=== PATIENT | male | born 1955 | race African-American/Black ===

== ENCOUNTER 2022-10-05 09:49 | Inpatient (IN) | payer OTHER ==
[2022-10-05 10:27] VITALS: BMI 23.0
[2022-10-05] MEDS ORDERED: NICOTINE POLACRILEX 2 MG GUM BUC PRN (11:12)
[2022-10-05] MEDS ORDERED: NICOTINE 10 MG CARTRIDGE (INHALER) IH PRN (11:12)
[2022-10-05] MEDS ORDERED: MAGNESIUM HYDROX 2400MG/30ML ORAL SUSPENSION 30 ML CUP PO PRN (11:12)
[2022-10-05] MEDS ORDERED: ONDANSETRON *ODT* 4 MG TABLET SL PRN (11:12)
[2022-10-05] MEDS ORDERED: ACETAMINOPHEN 325 MG TABLET (FP) PO PRN ×2 (11:12)
[2022-10-05] MEDS ORDERED: BISMUTH SUBSALICYLATE 524 MG/30 ML PO PRN (11:12)
[2022-10-05] MEDS ORDERED: POLYETHYLENE GLYCOL (HEALTHYLAX) 3350 17 GM PACKET PO PRN (11:12)
[2022-10-05] MEDS ORDERED: LOPERAMIDE HCL 2 MG CAPSULE PO PRN (11:12)
[2022-10-05] MEDS ORDERED: BENZOCAINE/MENTHOL (CHLORASEPTIC ) LOZENGE MM PRN (11:12)
[2022-10-05] MEDS ORDERED: DICYCLOMINE HCL 10 MG CAPSULE PO PRN (11:12)
[2022-10-05] MEDS ORDERED: NALOXONE HCL (KLOXXADO) 8 MG SPRAY NS PRN (11:12)
[2022-10-05] MEDS ORDERED: NALOXONE HCL 0.4 MG/ML VIAL IM PRN (11:12)
[2022-10-05] MEDS ORDERED: MAG HYDROX/AL HYDROX/SIMETH 30 ML UNIT-DOSE CUP PO PRN (11:12)
[2022-10-05] MEDS ORDERED: methaDONE HCL 10 MG TABLET (FOR DETOX USE ONLY) ONE (12:09)
[2022-10-05] MEDS ORDERED: methaDONE HCL 10 MG TABLET (FOR DETOX USE ONLY) PO ONE (12:15)
[2022-10-05] MEDS: cloNIDine HCL 0.1 MG TABLET PO PRN (13:48)
[2022-10-05 15:04] LABS: HEMATOCRIT 34.2 % (35.4-49); MCH 29.2 pg (25.7-33.7); MCHC 32.2 g/dl (32.0-35.9); MEAN CELL VOLUME 90.6 fl (80-96); PLATELET COUNT 211 10^3/uL (134-434); RBC 3.78 M/mm3 (4.00-5.60); RDW 14.5 % (11.9-15.9); WHITE BLOOD COUNT 4.1 K/mm3 (4.0-10.0)
[2022-10-05 15:16] LABS: CALCIUM 9.2 mg/dL (8.5-10.1)
[2022-10-05 15:17] LABS: ALBUMIN 3.5 g/dl (3.4-5.0); BLOOD UREA NITROGEN 16.6 mg/dL (7-18)
[2022-10-05 15:20] LABS: CREATININE 1.3 mg/dL (0.55-1.3)
[2022-10-05 15:21] LABS: TOT PROT 7.7 g/dl (6.4-8.2)
[2022-10-05 15:22] LABS: BILIRUBIN,TOTAL 0.6 mg/dL (0.2-1)
[2022-10-05] MEDS: TAMSULOSIN HCL 0.4 MG CAP PO SCH (22:36)
[2022-10-05] MEDS: MELATONIN 5 MG TABLETS PO SCH (22:36)
[2022-10-05] MEDS: APIXABAN 5 MG TABLET PO SCH (22:36)
[2022-10-05] MEDS: THIAMINE HCL 100 MG TABLET (FP) PO SCH (22:37)
[2022-10-06 09:22] LABS: EPI CELLS 4 /uL (0-25.1); HYALINE CASTS 0 /uL (0-3.1); URINE APPEARANCE CLEAR; URINE BACTERIA 1364 /uL (0-1359); URINE BILIRUBIN NEGATIVE (NEGATIVE); URINE COLOR YELLOW; URINE GLUCOSE (UA) NEGATIVE (NEGATIVE); URINE KETONE NEGATIVE (NEGATIVE); URINE LEUK ESTERASE NEGATIVE (NEGATIVE); URINE NITRITE POSITIVE (NEGATIVE); URINE PROTEIN TRACE (NEGATIVE); URINE RBC 51 /uL (0-23.9); URINE WBC 26 /uL (0-25.8)
[2022-10-06] MEDS: APIXABAN 5 MG TABLET PO SCH ×2 (10:24→22:27)
[2022-10-06] MEDS: PRENATAL VITAMINS W/ FOLIC ACID TABLET (FP) PO SCH (10:24)
[2022-10-06] MEDS: TAMSULOSIN HCL 0.4 MG CAP PO SCH ×2 (10:24→22:27)
[2022-10-06] MEDS: THIAMINE HCL 100 MG TABLET (FP) PO SCH (22:27)
[2022-10-06] MEDS: MELATONIN 5 MG TABLETS PO SCH (22:27)
[2022-10-07] MEDS ORDERED: methaDONE HCL 10 MG TABLET (FOR DETOX USE ONLY) PO ONE (10:00)
[2022-10-07] MEDS: PRENATAL VITAMINS W/ FOLIC ACID TABLET (FP) PO SCH (10:18)
[2022-10-07] MEDS: APIXABAN 5 MG TABLET PO SCH ×2 (10:18→21:47)
[2022-10-07] MEDS: TAMSULOSIN HCL 0.4 MG CAP PO SCH ×2 (10:56→21:48)
[2022-10-07] MEDS: MELATONIN 5 MG TABLETS PO SCH (21:47)
[2022-10-07] MEDS: cloNIDine HCL 0.1 MG TABLET PO PRN (21:47)
[2022-10-07] MEDS: THIAMINE HCL 100 MG TABLET (FP) PO SCH (21:48)
[2022-10-08] MEDS: PRENATAL VITAMINS W/ FOLIC ACID TABLET (FP) PO SCH (10:13)
[2022-10-08] MEDS: TAMSULOSIN HCL 0.4 MG CAP PO SCH ×2 (10:14→21:42)
[2022-10-08] MEDS: APIXABAN 5 MG TABLET PO SCH ×2 (10:14→21:43)
[2022-10-08] MEDS ORDERED: cloNIDine HCL 0.1 MG TABLET PO ONE (21:15)
[2022-10-08] MEDS: THIAMINE HCL 100 MG TABLET (FP) PO SCH (21:43)
[2022-10-08] MEDS: MELATONIN 5 MG TABLETS PO SCH (21:44)
[2022-10-09 06:13] VITALS: RESP 17
[2022-10-09 09:20] VITALS: BP 138/77; PULSE 61; TEMP 97.8
[2022-10-09] MEDS: TAMSULOSIN HCL 0.4 MG CAP PO SCH (10:10)
[2022-10-09] MEDS: PRENATAL VITAMINS W/ FOLIC ACID TABLET (FP) PO SCH (10:10)
[2022-10-09] MEDS: APIXABAN 5 MG TABLET PO SCH (10:10)
== END 2022-10-09 12:27 | disposition other institution (70) | DRG 897 ==
LOC: YASAS 09:49 → Y3N 12:57
PROVIDERS: ADMIT Allergy & Immunology; ATTEND Surgery
PROC: HZ2ZZZZ Detoxification Services for Substance Abuse Treatment (ICD-10-PCS; principal; 2022-10-05)
DX: F11.23 Opioid dependence with withdrawal (principal); F14.20 Cocaine dependence, uncomplicated; F17.210 Nicotine dependence, cigarettes, uncomplicated; D64.9 Anemia, unspecified; I48.91 Unspecified atrial fibrillation; K40.90 Unilateral inguinal hernia, without obstruction or gangrene, not specified as recurrent; N40.0 Benign prostatic hyperplasia without lower urinary tract symptoms; R82.998 Other abnormal findings in urine; Z96.0 Presence of urogenital implants; Z79.01 Long term (current) use of anticoagulants; Z86.73 Personal history of transient ischemic attack (TIA), and cerebral infarction without residual deficits; Z88.8 Allergy status to other drugs, medicaments and biological substances
CPT/HCPCS: 36415; 71046-TC-FY; 80053; 81003; 85027; 86780; 87811; 93005; 93010; C9803-CS; U0003; U0005

== ENCOUNTER 2022-10-09 12:47 | Inpatient (IN) | payer OTHER ==
[2022-10-09] MEDS ORDERED: MAG HYDROX/AL HYDROX/SIMETH 30 ML UNIT-DOSE CUP PO PRN (14:10)
[2022-10-09] MEDS ORDERED: IBUPROFEN 600 MG TABLET (FP) PO PRN (14:10)
[2022-10-09] MEDS ORDERED: BENZOCAINE/MENTHOL (CHLORASEPTIC ) LOZENGE MM PRN (14:10)
[2022-10-09] MEDS ORDERED: BENZONATATE 200 MG CAPSULE PO PRN (14:10)
[2022-10-09] MEDS ORDERED: NALOXONE HCL (KLOXXADO) 8 MG SPRAY NS PRN (14:10)
[2022-10-09] MEDS ORDERED: POLYETHYLENE GLYCOL (HEALTHYLAX) 3350 17 GM PACKET PO PRN (14:10)
[2022-10-09] MEDS ORDERED: guaiFENesin 600 MG TABLET.ER (FP) PO PRN (14:10)
[2022-10-09] MEDS ORDERED: LOPERAMIDE HCL 2 MG CAPSULE PO PRN (14:10)
[2022-10-09] MEDS ORDERED: NALOXONE HCL 0.4 MG/ML VIAL IVPUSH PRN (14:10)
[2022-10-09] MEDS ORDERED: MAGNESIUM HYDROX 2400MG/30ML ORAL SUSPENSION 30 ML CUP PO PRN (14:10)
[2022-10-09] MEDS ORDERED: NICOTINE 10 MG CARTRIDGE (INHALER) IH PRN (14:10)
[2022-10-09] MEDS ORDERED: IBUPROFEN 400 MG TABLET (FP) PO PRN (14:10)
[2022-10-09] MEDS ORDERED: ACETAMINOPHEN 325 MG TABLET (FP) PO PRN (14:10)
[2022-10-09] MEDS: MELATONIN 5 MG TABLETS PO SCH (22:03)
[2022-10-09] MEDS: THIAMINE HCL 100 MG TABLET (FP) PO SCH (22:03)
[2022-10-09] MEDS: TAMSULOSIN HCL 0.4 MG CAP PO SCH (22:03)
[2022-10-09] MEDS: APIXABAN 5 MG TABLET PO SCH (22:03)
[2022-10-09] MEDS: hydrOXYzine PAMOATE 25 MG CAPSULE (FP) PO PRN (22:04)
[2022-10-10] MEDS: TAMSULOSIN HCL 0.4 MG CAP PO SCH ×2 (10:20→21:07)
[2022-10-10] MEDS: APIXABAN 5 MG TABLET PO SCH ×2 (10:20→21:07)
[2022-10-10] MEDS: PRENATAL VITAMINS W/ FOLIC ACID TABLET (FP) PO SCH (10:20)
[2022-10-10] MEDS: THIAMINE HCL 100 MG TABLET (FP) PO SCH (21:07)
[2022-10-10] MEDS: MELATONIN 5 MG TABLETS PO SCH (21:07)
[2022-10-11] MEDS: PRENATAL VITAMINS W/ FOLIC ACID TABLET (FP) PO SCH (09:56)
[2022-10-11] MEDS: TAMSULOSIN HCL 0.4 MG CAP PO SCH ×2 (09:56→21:14)
[2022-10-11] MEDS: APIXABAN 5 MG TABLET PO SCH ×2 (09:56→21:14)
[2022-10-11] MEDS: MELATONIN 5 MG TABLETS PO SCH (21:14)
[2022-10-11] MEDS: THIAMINE HCL 100 MG TABLET (FP) PO SCH (21:14)
[2022-10-12] MEDS: PRENATAL VITAMINS W/ FOLIC ACID TABLET (FP) PO SCH (09:46)
[2022-10-12] MEDS: TAMSULOSIN HCL 0.4 MG CAP PO SCH ×2 (09:46→21:30)
[2022-10-12] MEDS: APIXABAN 5 MG TABLET PO SCH ×2 (09:46→21:29)
[2022-10-12] MEDS ORDERED: ALBUTEROL SO4 HFA INHALER IH PRN (14:58)
[2022-10-12] MEDS: MELATONIN 5 MG TABLETS PO SCH (21:30)
[2022-10-12] MEDS: THIAMINE HCL 100 MG TABLET (FP) PO SCH (21:30)
[2022-10-12] MEDS: CLOTRIMAZOLE 1% 10 ML TOPICAL SOLUTION TP SCH (21:32)
[2022-10-12] MEDS: CICLOPIROX OLAMINE TP SCH (22:31)
[2022-10-13] MEDS: TAMSULOSIN HCL 0.4 MG CAP PO SCH ×2 (10:02→21:26)
[2022-10-13] MEDS: CICLOPIROX OLAMINE TP SCH ×2 (10:02→21:26)
[2022-10-13] MEDS: CLOTRIMAZOLE 1% 10 ML TOPICAL SOLUTION TP SCH ×2 (10:02→21:26)
[2022-10-13] MEDS: APIXABAN 5 MG TABLET PO SCH ×2 (10:02→21:26)
[2022-10-13] MEDS: PRENATAL VITAMINS W/ FOLIC ACID TABLET (FP) PO SCH (10:02)
[2022-10-13] MEDS: MELATONIN 5 MG TABLETS PO SCH (21:25)
[2022-10-13] MEDS: THIAMINE HCL 100 MG TABLET (FP) PO SCH (21:25)
[2022-10-13] MEDS: hydrOXYzine PAMOATE 25 MG CAPSULE (FP) PO PRN (21:27)
[2022-10-14] MEDS: APIXABAN 5 MG TABLET PO SCH ×2 (09:42→21:18)
[2022-10-14] MEDS: PRENATAL VITAMINS W/ FOLIC ACID TABLET (FP) PO SCH (09:42)
[2022-10-14] MEDS: TAMSULOSIN HCL 0.4 MG CAP PO SCH ×2 (09:42→21:19)
[2022-10-14] MEDS: CICLOPIROX OLAMINE TP SCH ×2 (09:43→21:19)
[2022-10-14] MEDS: CLOTRIMAZOLE 1% 10 ML TOPICAL SOLUTION TP SCH ×2 (09:43→21:19)
[2022-10-14] MEDS: MELATONIN 5 MG TABLETS PO SCH (21:19)
[2022-10-14] MEDS: hydrOXYzine PAMOATE 25 MG CAPSULE (FP) PO PRN (21:19)
[2022-10-14] MEDS: THIAMINE HCL 100 MG TABLET (FP) PO SCH (21:19)
[2022-10-15] MEDS: TAMSULOSIN HCL 0.4 MG CAP PO SCH ×2 (09:59→21:29)
[2022-10-15] MEDS: PRENATAL VITAMINS W/ FOLIC ACID TABLET (FP) PO SCH (09:59)
[2022-10-15] MEDS: APIXABAN 5 MG TABLET PO SCH ×2 (09:59→21:29)
[2022-10-15] MEDS: CICLOPIROX OLAMINE TP SCH ×2 (10:00→21:47)
[2022-10-15] MEDS: CLOTRIMAZOLE 1% 10 ML TOPICAL SOLUTION TP SCH ×2 (10:00→21:48)
[2022-10-15] MEDS: THIAMINE HCL 100 MG TABLET (FP) PO SCH (21:29)
[2022-10-15] MEDS: MELATONIN 5 MG TABLETS PO SCH (21:29)
[2022-10-15] MEDS: hydrOXYzine PAMOATE 25 MG CAPSULE (FP) PO PRN (21:29)
[2022-10-16] MEDS: TAMSULOSIN HCL 0.4 MG CAP PO SCH ×2 (09:45→21:21)
[2022-10-16] MEDS: APIXABAN 5 MG TABLET PO SCH ×2 (09:45→21:21)
[2022-10-16] MEDS: PRENATAL VITAMINS W/ FOLIC ACID TABLET (FP) PO SCH (09:45)
[2022-10-16] MEDS: CICLOPIROX OLAMINE TP SCH ×2 (09:45→22:27)
[2022-10-16] MEDS: CLOTRIMAZOLE 1% 10 ML TOPICAL SOLUTION TP SCH ×2 (09:46→22:27)
[2022-10-16] MEDS: hydrOXYzine PAMOATE 25 MG CAPSULE (FP) PO PRN (21:21)
[2022-10-16] MEDS: THIAMINE HCL 100 MG TABLET (FP) PO SCH (21:21)
[2022-10-16] MEDS: MELATONIN 5 MG TABLETS PO SCH (21:22)
[2022-10-17] MEDS: PRENATAL VITAMINS W/ FOLIC ACID TABLET (FP) PO SCH (09:57)
[2022-10-17] MEDS: APIXABAN 5 MG TABLET PO SCH ×2 (09:57→21:18)
[2022-10-17] MEDS: CICLOPIROX OLAMINE TP SCH ×2 (09:57→21:20)
[2022-10-17] MEDS: CLOTRIMAZOLE 1% 10 ML TOPICAL SOLUTION TP SCH ×2 (09:57→21:21)
[2022-10-17] MEDS: TAMSULOSIN HCL 0.4 MG CAP PO SCH ×2 (09:57→21:19)
[2022-10-17] MEDS: THIAMINE HCL 100 MG TABLET (FP) PO SCH (21:18)
[2022-10-17] MEDS: MELATONIN 5 MG TABLETS PO SCH (21:18)
[2022-10-18] MEDS: PRENATAL VITAMINS W/ FOLIC ACID TABLET (FP) PO SCH (09:53)
[2022-10-18] MEDS: TAMSULOSIN HCL 0.4 MG CAP PO SCH ×2 (09:53→21:15)
[2022-10-18] MEDS: CLOTRIMAZOLE 1% 10 ML TOPICAL SOLUTION TP SCH ×2 (09:53→21:16)
[2022-10-18] MEDS: CICLOPIROX OLAMINE TP SCH ×2 (09:53→21:15)
[2022-10-18] MEDS: APIXABAN 5 MG TABLET PO SCH ×2 (09:53→21:15)
[2022-10-18] MEDS: THIAMINE HCL 100 MG TABLET (FP) PO SCH (21:15)
[2022-10-18] MEDS: MELATONIN 5 MG TABLETS PO SCH (21:15)
[2022-10-19] MEDS: CICLOPIROX OLAMINE TP SCH ×2 (09:49→21:06)
[2022-10-19] MEDS: TAMSULOSIN HCL 0.4 MG CAP PO SCH ×2 (09:50→21:05)
[2022-10-19] MEDS: PRENATAL VITAMINS W/ FOLIC ACID TABLET (FP) PO SCH (09:50)
[2022-10-19] MEDS: APIXABAN 5 MG TABLET PO SCH ×2 (09:50→21:05)
[2022-10-19] MEDS: CLOTRIMAZOLE 1% 10 ML TOPICAL SOLUTION TP SCH ×2 (09:50→21:06)
[2022-10-19] MEDS: MELATONIN 5 MG TABLETS PO SCH (21:05)
[2022-10-19] MEDS: hydrOXYzine PAMOATE 25 MG CAPSULE (FP) PO PRN (21:05)
[2022-10-19] MEDS: THIAMINE HCL 100 MG TABLET (FP) PO SCH (21:05)
[2022-10-20] MEDS: PRENATAL VITAMINS W/ FOLIC ACID TABLET (FP) PO SCH (09:25)
[2022-10-20] MEDS: TAMSULOSIN HCL 0.4 MG CAP PO SCH ×2 (09:25→21:28)
[2022-10-20] MEDS: APIXABAN 5 MG TABLET PO SCH ×2 (09:25→21:28)
[2022-10-20] MEDS: CLOTRIMAZOLE 1% 10 ML TOPICAL SOLUTION TP SCH ×2 (09:25→21:29)
[2022-10-20] MEDS: CICLOPIROX OLAMINE TP SCH ×2 (09:25→21:29)
[2022-10-20] MEDS: MELATONIN 5 MG TABLETS PO SCH (21:28)
[2022-10-20] MEDS: hydrOXYzine PAMOATE 25 MG CAPSULE (FP) PO PRN (21:28)
[2022-10-20] MEDS: THIAMINE HCL 100 MG TABLET (FP) PO SCH (21:28)
[2022-10-21] MEDS: TAMSULOSIN HCL 0.4 MG CAP PO SCH ×2 (09:35→21:09)
[2022-10-21] MEDS: CICLOPIROX OLAMINE TP SCH ×2 (09:36→22:41)
[2022-10-21] MEDS: PRENATAL VITAMINS W/ FOLIC ACID TABLET (FP) PO SCH (09:36)
[2022-10-21] MEDS: CLOTRIMAZOLE 1% 10 ML TOPICAL SOLUTION TP SCH ×2 (09:36→21:10)
[2022-10-21] MEDS: APIXABAN 5 MG TABLET PO SCH ×2 (09:36→21:09)
[2022-10-21] MEDS: THIAMINE HCL 100 MG TABLET (FP) PO SCH (21:09)
[2022-10-21] MEDS: MELATONIN 5 MG TABLETS PO SCH (21:10)
[2022-10-22 07:26] VITALS: BP 110/76; PULSE 93; RESP 18; TEMP 97
[2022-10-22] MEDS: CICLOPIROX OLAMINE TP SCH (09:01)
[2022-10-22] MEDS: CLOTRIMAZOLE 1% 10 ML TOPICAL SOLUTION TP SCH (09:02)
[2022-10-22] MEDS: PRENATAL VITAMINS W/ FOLIC ACID TABLET (FP) PO SCH (09:02)
[2022-10-22] MEDS: APIXABAN 5 MG TABLET PO SCH (09:02)
[2022-10-22] MEDS: TAMSULOSIN HCL 0.4 MG CAP PO SCH (09:02)
== END 2022-10-22 09:05 | disposition home or self-care (01) | DRG 895 ==
LOC: YASAS 12:47 → Y3E 12:49
PROVIDERS: ADMIT Allergy & Immunology; ATTEND Allergy & Immunology
PROC: HZ42ZZZ Group Counseling for Substance Abuse Treatment, Cognitive-Behavioral (ICD-10-PCS; principal; 2022-10-09)
DX: F11.20 Opioid dependence, uncomplicated (principal); F14.20 Cocaine dependence, uncomplicated; I48.91 Unspecified atrial fibrillation; Z79.01 Long term (current) use of anticoagulants; N40.0 Benign prostatic hyperplasia without lower urinary tract symptoms; K40.90 Unilateral inguinal hernia, without obstruction or gangrene, not specified as recurrent; R76.11 Nonspecific reaction to tuberculin skin test without active tuberculosis; Z96.0 Presence of urogenital implants; Z86.73 Personal history of transient ischemic attack (TIA), and cerebral infarction without residual deficits
CPT/HCPCS: 36415; 86803; 87522